=== PATIENT | male | born 1995 | race Two or more races ===

== ENCOUNTER 2016-07-13 14:01 | Outpatient (CLI) | payer SELFPAY | END 2016-07-13 14:02 | disposition EMS.NT | LOC: EMS 14:01 | PROVIDERS: ATTEND Surgery | DX: R00.0 Tachycardia, unspecified (principal) ==

== ENCOUNTER 2019-03-08 01:53 | Emergency (ER) | payer OTHER ==
--- NOTE | 2019-03-08 03:26 | ED Physician Documentation ---
PD HPI HEENT - Stated complaint Stated Complaint: TOOTH PX - Chief complaint Chief Complaint: Heent - History obtained from History obtained from: Patient - History of Present Illness Timing - onset: How many days ago (6) Timing - duration: Days Timing - details: Gradual onset, Intermittant (worst at night, improved during days), Waxing and waning Pain level now: 8 Location: Tooth, Mouth Improves: Nothing Worsens: Position (worse at night; patient feels this is due to lying down) Associated symptoms: No: Fever, Congestion, Rhinorrhea, Trismus, Unable to swallow, Swollen nodes, Facial swelling, Headache, Cough Similar symptoms before: Has not had sx before Recently seen: Not recently seen - Additional information Additional information: c/o my mouth has been hurting all night. patient describes dental pain that began 6 days ago, initially left upper tooth but subsequently involving lower left tooth and then increasing radiation to left cheek, face, and jaw. worst at night when lying down, improved during the day Review of Systems Constitutional: reports: Reviewed and negative Ears: reports: Reviewed and negative Throat: reports: Dental pain / toothache. denies: Oral lesions / sores, Sore throat PD PAST MEDICAL HISTORY - Past Medical History Past Medical History: No - Present Medications Home Medications: Ambulatory Orders Medication Instructions Recorded Confirmed Hydrocodone/Acetaminophen 1 - 2 each PO Q6HR PRN #20 tablet 03/08/19 [Hydrocodon-Acetaminophen 5-325] Penicillin V Potassium 500 mg PO TID #14 tablet 03/08/19 - Allergies Allergies/Adverse Reactions: Allergies Allergy/AdvReac Type Severity Reaction Status Date / Time No Known Drug Allergies Allergy Verified 03/08/19 02:06 - Living Situation Living Arrangement: reports: At home - Social History Does the pt smoke?: No PD ED PE NORMAL - Vitals Vital signs reviewed: Yes - General General: Alert and oriented X 3, No acute distress, Well developed/nourished - HEENT HEENT: Moist mucous membranes, Pharynx benign, Dentition benign - Neck Neck: Supple, no meningeal sign PD ED PE EXPANDED - HEENT HEENT: Other (good dentition overall, although missing left maxillary 1st premolar and left mandibular 1st molar. there is a cavity noted left mandibular canine (anterior/buccal surface). there is no intraoral erythema, swelling, or TTP) Results - Vitals Vitals: Oxygen O2 Source Room air PD MEDICAL DECISION MAKING - ED course Complexity details: considered differential, d/w patient Departure - Departure Disposition: 01 Home, Self Care Clinical Impression: Pain, dental Condition: Good Instructions: ED Tooth Pain Follow-Up: [facility] [Provider Group] Prescriptions: Hydrocodone/Acetaminophen [Hydrocodon-Acetaminophen 5-325] 1 - 2 each PO Q6HR PRN #20 tablet PRN Reason: Pain Penicillin V Potassium 500 mg PO TID #14 tablet Discharge Date/Time: 03/08/19 03:56
[2019-03-08] MEDS ORDERED: PENICILLIN VK 250 MG TABLET PO STA (03:47)
[2019-03-08] MEDS ORDERED: HYDROcod/ACETAM 5/325 MG TABLET PO STA (03:47)
[2019-03-08 03:56] VITALS: BP 125/82
== END 2019-03-08 03:56 | disposition home or self-care (01) ==
LOC: ED 01:53
DX: K08.89 Other specified disorders of teeth and supporting structures (principal)
CPT/HCPCS: 99282; 99283; A9270